=== PATIENT | male | born 1995 | race Caucasian/White ===

== ENCOUNTER 2020-07-08 21:29 | Emergency (ER) | payer OTHER ==
[~2020-07-08] VITALS: Ht 175.3 cm; Wt 72.0 kg
[2020-07-08] MEDS ORDERED: BENA25CA4 PO (21:45)
[2020-07-08] MEDS ORDERED: IBUP-359 PO (21:45)
[2020-07-08] MEDS ORDERED: FLON1SPR NARES (21:45)
--- NOTE | 2020-07-08 22:57 | REPVR ---
PROCEDURE INFORMATION: Exam: XR Chest Exam date and time: 07/08/2020 10:16 PM Age: 25 years old Clinical indication: Shortness of breath TECHNIQUE: Imaging protocol: XR of the chest. Views: 2 views. COMPARISON: No relevant prior studies available. FINDINGS: Lungs: Degree of inflation of the lungs is normal. No evidence of pulmonary edema. No focal airspace process. No concerning parenchymal lung mass. Pleural spaces: No pleural effusion or pneumothorax. Heart/Mediastinum: Cardiac silhouette appears normal. No mediastinal adenopathy or hilar mass. Bones/joints: Osseous structures show no acute or concerning abnormality. IMPRESSION: No active or focal cardiopulmonary process. Electronically signed by: Abdiaziz Evans On 07/08/2020 22:57:12 PM
[2020-07-09] MEDS ORDERED: predniSONE 20 MG TAB PO ONE (01:55)
[2020-07-09] MEDS: COMBIVENT RESPIMAT 100-20MCG INHALER 4GM INH SCH ×3 (02:02→03:10)
[2020-07-09] MEDS ORDERED: VENTAER INH (03:21)
[2020-07-09] MEDS ORDERED: PRED20TA PO (03:21)
[2020-07-09 03:27] VITALS: BP 124/71
== END 2020-07-09 00:13 | disposition home or self-care (01) ==
LOC: M ED 21:29
DX: J20.6 Acute bronchitis due to rhinovirus (principal); Z91.048 Other nonmedicinal substance allergy status
CPT/HCPCS: 71046; 87798; 99283; J7512